=== PATIENT | female | born 1955 | race Caucasian/White ===

== ENCOUNTER 2021-06-22 20:15 | Emergency (ER) | payer MEDICARE, OTHER ==
[~2021-06-22] VITALS: Ht 160 cm; Wt 63.0 kg
[2021-06-22] MEDS ORDERED: LIDOCAINE 1% W/EPINEPHRINE 20 ML VIAL INJ ONE (22:15)
[2021-06-22] MEDS ORDERED: LIDOCAINE 1% W/EPINEPHRINE 20 ML VIAL ONE (22:18)
[2021-06-22] MEDS ORDERED: NEOMYCIN/POLYMYX/BACITR OINT 0.9 GM PKT ONE (22:19)
[2021-06-22] MEDS ORDERED: NEOMYCIN/POLYMYX/BACITR OINT 0.9 GM PKT TOP ONE (22:30)
[2021-06-23] MEDS ORDERED: LEVETIRACETAM 500 MG TAB PO STA (01:10)
[2021-06-23 01:11] VITALS: BP 172/98
[2021-06-23] MEDS ORDERED: LEVETIRACETAM 500 MG TAB ONE (01:20)
== END 2021-06-23 01:30 | disposition other institution (70) ==
LOC: ER 20:43
DX: S01.01XA Laceration without foreign body of scalp, initial encounter (principal); S06.6X0A Traumatic subarachnoid hemorrhage without loss of consciousness, initial encounter; W01.190A Fall on same level from slipping, tripping and stumbling with subsequent striking against furniture, initial encounter; Y93.01 Activity, walking, marching and hiking; Y92.008 Other place in unspecified non-institutional (private) residence as the place of occurrence of the external cause; G40.909 Epilepsy, unspecified, not intractable, without status epilepticus; K21.9 Gastro-esophageal reflux disease without esophagitis; Z86.79 Personal history of other diseases of the circulatory system
CPT/HCPCS: 70450; 99285

== ENCOUNTER 2022-01-26 10:54 | Outpatient (RCR) | payer MEDICARE | END 2022-01-30 | LOC: OT 10:54 | PROVIDERS: ATTEND Specialist | DX: S62.354D Nondisplaced fracture of shaft of fourth metacarpal bone, right hand, subsequent encounter for fracture with routine healing (principal); M79.641 Pain in right hand; M25.641 Stiffness of right hand, not elsewhere classified; R53.1 Weakness ==

== ENCOUNTER 2022-02-26 11:00 | Outpatient (RCR) | payer MEDICARE | END 2022-03-01 | LOC: OT 11:00 | PROVIDERS: ATTEND Specialist | DX: S62.394A Other fracture of fourth metacarpal bone, right hand, initial encounter for closed fracture (principal) ==

== ENCOUNTER 2022-02-26 11:55 | Emergency (ER) | payer MEDICARE ==
[~2022-02-26] VITALS: Ht 160 cm; Wt 63.0 kg
[2022-02-26 12:53] LABS: BASOPHILS # (AUTO) 0.1 (0.0-0.1); BASOPHILS % 0.5 % (0.0-1.0); EOSINOPHILS # (AUTO) 0.3 (0.0-0.4); EOSINOPHILS % 3.5 % (0.0-6.0); HEMATOCRIT 44.2 % (34.2-44.1); HEMOGLOBIN 14.1 g/dL (12.0-16.0); LYMPHOCYTES # (AUTO) 1.9 (1.0-3.2); LYMPHOCYTES % 20.3 % (18.0-39.1); MEAN CORPUSCULAR HGB CONC 31.9 g/dL (31-35); MEAN CORPUSCULAR VOLUME 97.1 fL (81-99); MONOCYTES # (AUTO) 0.5 (0.2-0.8); MONOCYTES % 5.4 % (4.4-11.3); NEUTROPHILS # (AUTO) 6.5 (2.1-6.9); NEUTROPHILS % 69.9 % (38.7-80.0); PLATELET COUNT 336 x10e3/uL (140-360); RED BLOOD COUNT 4.55 x10e6/uL (3.6-5.1); RED CELL DISTRIBUTION WIDTH 12.6 % (11.7-14.4)
[2022-02-26 13:32] LABS: INR 0.86; PARTIAL THROMBOPLASTIN TIME 25.7 seconds (23.8-35.5); PROTHROMBIN TIME 12.5 seconds (11.9-14.5)
[2022-02-26 13:42] LABS: ALBUMIN 4.2 g/dL (3.5-5.0); ALBUMIN/GLOBULIN RATIO 1.1 (0.8-2.0); CALCIUM 9.3 mg/dL (8.4-10.2); CREATININE, SERUM 0.86 mg/dL (0.57-1.11)
[2022-02-26 13:50] LABS: CREATINE KINASE MB 0.6 ng/mL (0-5.0)
[2022-02-26] MEDS ORDERED: IOPAMIDOL 370 MG/ML 100 ML INFUS..BTL INJ ONE (14:04)
[2022-02-26] MEDS ORDERED: SODIUM CHLORIDE 0.9% 100 ML ONE (14:04)
== END 2022-02-26 19:35 | disposition short-term general hospital (02) ==
LOC: ER 12:06
DX: I67.1 Cerebral aneurysm, nonruptured (principal); Z86.73 Personal history of transient ischemic attack (TIA), and cerebral infarction without residual deficits; Z08 Encounter for follow-up examination after completed treatment for malignant neoplasm; Z85.3 Personal history of malignant neoplasm of breast; M06.9 Rheumatoid arthritis, unspecified; Z20.822 Contact with and (suspected) exposure to COVID-19
CPT/HCPCS: 0223U; 36415; 70450; 70496; 70498; 71045; 80053; 82550; 82553; 83880; 84484; 85025; 85610; 85730; 99284; J7050; Q9967

== ENCOUNTER 2022-03-29 10:48 | Outpatient (RCR) | payer MEDICARE | END 2022-04-01 | LOC: OT 10:48 | PROVIDERS: ATTEND Specialist | DX: S62.354D Nondisplaced fracture of shaft of fourth metacarpal bone, right hand, subsequent encounter for fracture with routine healing (principal); M79.641 Pain in right hand; M25.641 Stiffness of right hand, not elsewhere classified; R53.1 Weakness ==

== ENCOUNTER 2022-04-25 12:52 | Outpatient (RCR) | payer MEDICARE | END 2022-05-02 | LOC: OT 12:52 | PROVIDERS: ATTEND Specialist | DX: S62.394A Other fracture of fourth metacarpal bone, right hand, initial encounter for closed fracture (principal) ==